=== PATIENT | female | born 1945 | race Caucasian/White ===

== ENCOUNTER 2018-04-22 11:28 | Emergency (ER) | payer OTHER ==
[~2018-04-22] VITALS: Ht 170.2 cm; Wt 77.1 kg
[2018-04-22] MEDS ORDERED: SIMVASTATIN5 MG PO (12:11)
[2018-04-22] MEDS ORDERED: COZAAR50 MG PO (12:12)
== END 2018-04-22 18:39 | disposition home or self-care (01) ==
LOC: ER 11:28
DX: G89.11 Acute pain due to trauma (principal); M54.5 Low back pain; M54.2 Cervicalgia

== ENCOUNTER 2018-08-04 13:18 | Emergency (ER) | payer OTHER ==
[~2018-08-04] VITALS: Ht 170.2 cm; Wt 76.2 kg
[~2018-08-04 13:18] MED LIST: COZAAR50 MG PO; SIMVASTATIN5 MG PO
[2018-08-04] MEDS ORDERED: GLIMEPIRIDE2 MG (14:12)
== END 2018-08-04 18:14 | disposition home or self-care (01) ==
LOC: ER 13:18
DX: K58.8 Other irritable bowel syndrome (principal); I88.0 Nonspecific mesenteric lymphadenitis; K65.4 Sclerosing mesenteritis; R10.32 Left lower quadrant pain

== ENCOUNTER 2019-03-20 09:18 | Outpatient (CLI) | payer OTHER ==
[~2019-03-20 09:18] MED LIST changes: +GLIMEPIRIDE2 MG
== END 2019-03-20 12:20 | disposition home or self-care (01) ==
LOC: TOM 09:18
DX: R10.84 Generalized abdominal pain (principal)